=== PATIENT | female | born 2000 | race Caucasian/White ===

== ENCOUNTER 2020-01-02 19:55 | Emergency (ER) | payer MEDICAID ==
[~2020-01-02] VITALS: Ht 142.2 cm; Wt 61.2 kg
[2020-01-02 20:03] VITALS: Ht 142.2 cm; Wt 61.2 kg
[2020-01-02 20:35] LABS: BILIRUBIN NEGATIVE (NEGATIVE); HCG URINE NEGATIVE (NEGATIVE); KETONE NEGATIVE (NEGATIVE); NITRITE NEGATIVE (NEGATIVE); UROBILINOGEN NORMAL (NORMAL)
[2020-01-02 20:37] LABS: BACTERIA FEW /hpf (NONE SEEN); EPITHELIAL CELLS 0-5 /hpf (0-5); RED CELLS - URINE OCC /hpf (0-5); WHITE CELLS - URINE 0-5 /hpf (0-5)
[2020-01-02 20:46] LABS: BASOPHILS 0.9 % (0-2); EOSINOPHILS 3.7 % (0-7); HEMATOCRIT 39.7 % (36.0-48.0); HEMOGLOBIN 12.9 g/dL (12-16); LYMPHOCYTES 39.1 % (15-50); MCH 29.5 pg (26.0-34.0); MCHC 32.5 g/dL (31.0-37.0); MCV 90.6 fL (80.0-100.0); MEAN PLATELET VOLUME 9.1 fL (7.4-10.4); NEUTROPHILS 45.3 % (40-80); PLATELET COUNT 234 10x3/uL (130-400); RBC 4.38 10x6/uL (4.00-5.40); RDW 13.1 % (11.5-14.5); WBC 5.3 10x3/uL (4.8-10.8)
[2020-01-02] MEDS ORDERED: ZOFRAN ODT4 MG/UDTAB PO (21:22)
[2020-01-02 21:28] LABS: CALC OSMOLALITY 278 mosm/kg (275-300); CALCIUM 8.5 mg/dL (8.5-10.1); CARBON DIOXIDE 25.3 mmol/L (21.0-32.0); CHLORIDE - SERUM 108 mmol/L (98-107); CREATININE - SERUM 0.9 mg/dL (0.6-1.3); GLUCOSE 90 mg/dL (74-106); POTASSIUM - SERUM 3.7 mmol/L (3.5-5.1); SODIUM 141 mmol/L (136-145); UREA NITROGEN 8 mg/dL (7-18); eGFR NON AFRICAN AMERICAN 85 mL/min (90-120)
[2020-01-02 21:34] LABS: ALBUMIN 3.5 g/dL (3.4-5.0); ALKALINE PHOSPHATASE 63 U/L (30-120); ALT (SGPT) 15 U/L (10-68); BILIRUBIN - TOTAL 0.21 mg/dL (0.2-1.3); LIPASE 227 U/L (73-393); PROTEIN - SERUM 6.7 g/dL (6.4-8.2)
[2020-01-02 22:12] VITALS: BP 126/65
== END 2020-01-02 22:13 | disposition home or self-care (01) ==
LOC: D.ER 19:55
PROVIDERS: Family Medicine
DX: R10.9 Unspecified abdominal pain (principal)

== ENCOUNTER 2020-08-16 12:27 | Emergency (ER) | payer OTHER ==
[~2020-08-16] VITALS: Ht 142.2 cm; Wt 61.4 kg
[~2020-08-16 12:27] MED LIST: CIPRO500 MG PO; FLAGYL500 MG PO; PHENERGAN25 M1 PO; ZOFRAN ODT4 MG/UDTAB PO
[2020-08-16 12:30] VITALS: BP 115/74; Ht 142.2 cm; Wt 61.4 kg
[2020-08-16] MEDS ORDERED: METFORMIN HCL500 M1 PO (12:34)
[2020-08-16 12:51] LABS: BILIRUBIN NEGATIVE (NEGATIVE); HCG URINE NEGATIVE (NEGATIVE); KETONE NEGATIVE (NEGATIVE); NITRITE NEGATIVE (NEGATIVE); UROBILINOGEN NORMAL mg/dL (< 2)
[2020-08-16 13:05] LABS: BASOPHILS 0.2 % (0-2); EOSINOPHILS 0.9 % (0-7); HEMATOCRIT 44.2 % (36.0-48.0); HEMOGLOBIN 14.3 g/dL (12-16); IMMATURE GRANULOCYTES 0.1 % (0-5); LYMPHOCYTE ABS# 0.67 10x3/uL (1.18-3.74); LYMPHOCYTES 8.3 % (15-50); MCH 28.9 pg (26.0-34.0); MCHC 32.4 g/dL (31.0-37.0); MCV 89.3 fL (80.0-100.0); MEAN PLATELET VOLUME 9.5 fL (7.4-10.4); NEUTROPHIL ABS# 6.66 10x3/uL (1.56-6.13); NEUTROPHILS 82.5 % (40-80); PLATELET COUNT 269 10x3/uL (130-400); RBC 4.95 10x6/uL (4.00-5.40); RDW 13.6 % (11.5-14.5); WBC 8.1 10x3/uL (4.8-10.8)
[2020-08-16 13:10] LABS: CALC OSMOLALITY 272 mosm/kg (275-300); CARBON DIOXIDE 24.9 mmol/L (21.0-32.0); CHLORIDE - SERUM 102 mmol/L (98-107); CREATININE - SERUM 0.8 mg/dL (0.6-1.3); GLUCOSE 88 mg/dL (74-106); POTASSIUM - SERUM 3.7 mmol/L (3.5-5.1); SODIUM 137 mmol/L (136-145); UREA NITROGEN 12 mg/dL (7-18); eGFR NON AFRICAN AMERICAN > 90 mL/min (90-120)
[2020-08-16 13:19] LABS: ALBUMIN 4.1 g/dL (3.4-5.0); ALKALINE PHOSPHATASE 93 U/L (30-120); ALT (SGPT) 62 U/L (10-68); AMYLASE - SERUM 87 U/L (25-115); BILIRUBIN - TOTAL 0.48 mg/dL (0.2-1.3); LIPASE 149 U/L (73-393); PROTEIN - SERUM 7.9 g/dL (6.4-8.2); TROPONIN-I < 0.017 ng/mL (0.000-0.060)
[2020-08-16] MEDS ORDERED: ZOFRAN ODT4 MG/UDTAB PO (14:32)
== END 2020-08-16 15:18 | disposition home or self-care (01) ==
LOC: D.ER 12:27
PROVIDERS: Family Medicine
DX: R10.10 Upper abdominal pain, unspecified (principal); R11.10 Vomiting, unspecified; K52.9 Noninfective gastroenteritis and colitis, unspecified; E28.2 Polycystic ovarian syndrome; R42 Dizziness and giddiness

== ENCOUNTER 2020-09-26 01:16 | Emergency (ER) | payer OTHER ==
[~2020-09-26] VITALS: Ht 142.2 cm; Wt 61.4 kg
[~2020-09-26 01:16] MED LIST changes: +METFORMIN HCL500 M1 PO
[2020-09-26 01:17] VITALS: Ht 142.2 cm; Wt 61.4 kg
[2020-09-26 01:51] LABS: BILIRUBIN NEGATIVE (NEGATIVE); KETONE NEGATIVE (NEGATIVE); NITRITE NEGATIVE (NEGATIVE); UROBILINOGEN NORMAL mg/dL (< 2)
[2020-09-26 01:53] LABS: UDS - AMPHET NEGATIVE QUAL (NEGATIVE); UDS - BARB NEGATIVE QUAL (NEGATIVE); UDS - BENZO NEGATIVE QUAL (NEGATIVE); UDS - COCAINE NEGATIVE QUAL (NEGATIVE); UDS - OPIATE NEGATIVE QUAL (NEGATIVE); UDS - PCP NEGATIVE QUAL (NEGATIVE); UDS - THC NEGATIVE QUAL (NEGATIVE)
[2020-09-26 01:54] LABS: BASOPHILS 0.9 % (0-2); EOSINOPHILS 2.4 % (0-7); HEMATOCRIT 36.6 % (36.0-48.0); HEMOGLOBIN 12.2 g/dL (12-16); LYMPHOCYTES 26.8 % (15-50); MCH 29.1 pg (26.0-34.0); MCHC 33.5 g/dL (31.0-37.0); MCV 86.8 fL (80.0-100.0); MEAN PLATELET VOLUME 7.5 fL (7.4-10.4); MONOCYTES 20.6 % (2-11); NEUTROPHILS 49.3 % (40-80); PLATELET COUNT 219 10x3/uL (130-400); RBC 4.21 10x6/uL (4.00-5.40); RDW 13.5 % (11.5-14.5)
[2020-09-26 02:04] LABS: CALC OSMOLALITY 279 mosm/kg (275-300); CALCIUM 8.7 mg/dL (8.5-10.1); CARBON DIOXIDE 24.9 mmol/L (21.0-32.0); CHLORIDE - SERUM 105 mmol/L (98-107); CREATININE - SERUM 0.8 mg/dL (0.6-1.3); GLUCOSE 108 mg/dL (74-106); POTASSIUM - SERUM 3.3 mmol/L (3.5-5.1); SODIUM 140 mmol/L (136-145); UREA NITROGEN 12 mg/dL (7-18); eGFR NON AFRICAN AMERICAN > 90 mL/min (90-120)
[2020-09-26 02:32] LABS: ALBUMIN 3.4 g/dL (3.4-5.0); ALKALINE PHOSPHATASE 58 U/L (30-120); ALT (SGPT) 27 U/L (10-68); BILIRUBIN - TOTAL 0.23 mg/dL (0.2-1.3); HCG - QUANTITATIVE (MATERNAL) 4101 mIU/mL; PROTEIN - SERUM 6.5 g/dL (6.4-8.2)
[2020-09-26 03:02] VITALS: BP 104/56
== END 2020-09-26 03:00 | disposition home or self-care (01) ==
LOC: D.ER 01:16
PROVIDERS: Family Medicine
DX: O24.911 Unspecified diabetes mellitus in pregnancy, first trimester (principal); R07.89 Other chest pain; Z3A.01 Less than 8 weeks gestation of pregnancy